=== PATIENT | female | born 1950 | race Caucasian/White ===

== ENCOUNTER → 2021-03-01 | Day surgery (SDC) | payer OTHER ==
[~2021-03-01] VITALS: Ht 170.2 cm; Wt 68.0 kg
[~2021-03-01] MED LIST: MULTIVITAMIN1 EACH PO
== END | disposition home or self-care (01) ==
LOC: FAS 07:22
DX: Z12.11 Encounter for screening for malignant neoplasm of colon (principal); K57.30 Diverticulosis of large intestine without perforation or abscess without bleeding; R94.31 Abnormal electrocardiogram [ECG] [EKG]
CPT/HCPCS: 93005; J2250; J2704; J7120